=== PATIENT | male | born 1940 | race Caucasian/White ===

== ENCOUNTER → 2016-11-11 10:06 | Outpatient (CLI) | payer MEDICARE ==
[2016-06-03 13:41] VITALS: BMI 26.3
[~2016-11-11 10:06] MED LIST: BAYER CHEWABLE81 MG PO; BENADRYL25 MG PO; BUPRENORPHIN-N1 EACH SL; CORDARONE200 MG PO; CYMBALTA60 MG PO; HEMOCYTE PLUS C1 CAP PO; JANUMET 50-5001 TAB PO; LASIX40 MG PO; LIPITOR40 MG PO; METOPROLOL TART50 MG PO; MULTIPLE VITAMI1 TA1 PO; OMEPRAZOLE40 MG PO; PREDNISONE10 MG PO; PRINIVIL10 MG PO; SINEMET 25-1001 EACH PO; ZANAFLEX4 MG PO
== END | disposition home or self-care (01) ==
LOC: D.US 10:00
DX: I25.10 Atherosclerotic heart disease of native coronary artery without angina pectoris (principal); M79.605 Pain in left leg

== ENCOUNTER 2017-04-12 17:41 | Emergency (ER) | payer MEDICARE ==
[2016-06-03 13:41] VITALS: BMI 26.3
[2017-04-12 19:44] LABS: BASOPHILS 0.2 % (0-2); EOSINOPHILS 0.5 % (0-7); HEMATOCRIT 35.5 % (42.0-54.0); HEMOGLOBIN 11.9 g/dL (13.5-17.5); IMMATURE GRANULOCYTES 0.3 % (0-5); LYMPHOCYTES 4.9 % (15-50); MCH 29.9 pg (26.0-34.0); MCHC 33.5 g/dL (31.0-37.0); MCV 89.2 fL (80.0-100.0); MEAN PLATELET VOLUME 10.9 fL (7.4-10.4); NEUTROPHILS 80.1 % (40-80); RBC 3.98 10x6/uL (4.20-6.10); RDW 12.1 % (11.5-14.5); WBC 11.4 10x3/uL (4.8-10.8)
[2017-04-12 19:45] LABS: PLATELET COUNT 184 10x3/uL (130-400)
[2017-04-12 20:09] LABS: ALBUMIN 3.4 g/dL (3.4-5.0); ALKALINE PHOSPHATASE 78 U/L (46-116); ALT (SGPT) 20 U/L (10-68); CALC OSMOLALITY 255 mosm/kg (275-300); CALCIUM 8.7 mg/dL (8.5-10.1); CARBON DIOXIDE 29.1 mmol/L (21.0-32.0); CHLORIDE - SERUM 91 mmol/L (98-107); GLUCOSE 138 mg/dL (74-106); POTASSIUM - SERUM 4.7 mmol/L (3.5-5.1); PROTEIN - SERUM 6.5 g/dL (6.4-8.2); SODIUM 126 mmol/L (136-145); UREA NITROGEN 16 mg/dL (7-18); eGFR NON AFRICAN AMERICAN 76 mL/min (90-120)
[2017-04-12 20:17] LABS: PRO BNP 3528 pg/mL (0-450); TROPONIN-I < 0.017 ng/mL (0.000-0.060)
== END 2017-04-12 21:45 | disposition home or self-care (01) ==
LOC: D.ER 17:41
PROVIDERS: Family Medicine
DX: J18.9 Pneumonia, unspecified organism (principal)

== ENCOUNTER 2017-04-14 11:43 | Inpatient (IN) | payer MEDICARE ==
[2017-04-14 12:57] LABS: BASOPHILS 0.1 % (0-2); EOSINOPHILS 1.4 % (0-7); HEMATOCRIT 33.9 % (42.0-54.0); HEMOGLOBIN 11.6 g/dL (13.5-17.5); IMMATURE GRANULOCYTES 0.3 % (0-5); LYMPHOCYTES 7.9 % (15-50); MCH 29.9 pg (26.0-34.0); MCHC 34.2 g/dL (31.0-37.0); MCV 87.4 fL (80.0-100.0); MEAN PLATELET VOLUME 10.8 fL (7.4-10.4); MONOCYTES 21.8 % (2-11); NEUTROPHILS 68.5 % (40-80); RBC 3.88 10x6/uL (4.20-6.10); RDW 12.2 % (11.5-14.5)
[2017-04-14 13:00] LABS: PLATELET COUNT 238 10x3/uL (130-400)
[2017-04-14 13:21] LABS: ALBUMIN 2.8 g/dL (3.4-5.0); ALKALINE PHOSPHATASE 92 U/L (46-116); BILIRUBIN - TOTAL 0.44 mg/dL (0.2-1.3); CALC OSMOLALITY 254 mosm/kg (275-300); CALCIUM 8.3 mg/dL (8.5-10.1); CARBON DIOXIDE 29.6 mmol/L (21.0-32.0); CHLORIDE - SERUM 92 mmol/L (98-107); GLUCOSE 123 mg/dL (74-106); POTASSIUM - SERUM 4.6 mmol/L (3.5-5.1); PROTEIN - SERUM 6.2 g/dL (6.4-8.2); SODIUM 126 mmol/L (136-145); UREA NITROGEN 16 mg/dL (7-18); eGFR NON AFRICAN AMERICAN 76 mL/min (90-120)
[2017-04-14 13:23] LABS: ALT (SGPT) 36 U/L (10-68); TROPONIN-I < 0.017 ng/mL (0.000-0.060)
[2017-04-14] MEDS ORDERED: LOPRESSOR25 MG PO (13:40)
--- NOTE | 2017-04-14 14:31 | NUR ---
REPORT RECIEVED ASSUMED CARE. PATIENT IN BED WITH IV INTACT. NO COMPLAINTS. CALL LIGHT WITHIN REACH.
[2017-04-14 15:39] VITALS: BMI 23.8
--- NOTE | 2017-04-14 18:38 | NUR ---
METFORMIN NOT GIVEN FOR 1700 AT THIS TIME. PATIENT LAST BS 126 AND HAS NOT EATEN MUCH TODAY. PATIENT HAS NO COMPLAINTS AT THIS TIME. IV INTACT. CALL LIGHT WITHIN REACH.
--- NOTE | 2017-04-14 21:10 | NUR ---
PATIENT RESTING IN BED WITH GUEST AT BEDSIDE. ADMINISTERED MEDS PER ORDERS AND COMPLETED ASSESSMENT. COLLECTED URINE FOR LAB. PATIENT DENIES OTHER NEEDS AT THIS TIME. BED IN LOWEST POSITION AND CALL LIGHT WITHIN REACH. ENCOUARAGED THE PATIENT TO CALL IF HE HAS NEEDS.
[2017-04-15] VITALS: BP 132/58
[2017-04-15 04:00] VITALS: BP 121/58
[2017-04-15] MEDS ORDERED: FUROSEMIDE20 MG PO (04:29)
[2017-04-15] MEDS ORDERED: METOPROLOL TART50 MG PO (04:30)
--- NOTE | 2017-04-15 04:31 | NUR ---
PATIENT STATED HE MAY HAVE GIVEN INCORRECT DOSAGES ON HIS HOME MEDS AND BROUGHT A CURRENT LIST TO BE REVIEWED. I CORRECTED THE HOME DOSE OF FUROSEMIDE AND METOPROLOL. COPY OF THE PATIENT'S HOME MEDS IS IN THE CHART.
[2017-04-15 05:09] LABS: BASOPHILS 0.2 % (0-2); EOSINOPHILS 4.9 % (0-7); HEMATOCRIT 32.8 % (42.0-54.0); IMMATURE GRANULOCYTES 0.5 % (0-5); LYMPHOCYTES 21.4 % (15-50); MCH 29.4 pg (26.0-34.0); MCHC 33.5 g/dL (31.0-37.0); MCV 87.7 fL (80.0-100.0); MEAN PLATELET VOLUME 10.7 fL (7.4-10.4); MONOCYTES 20.2 % (2-11); NEUTROPHILS 52.8 % (40-80); PLATELET COUNT 243 10x3/uL (130-400); RBC 3.74 10x6/uL (4.20-6.10); RDW 12.3 % (11.5-14.5)
[2017-04-15 05:10] LABS: WBC 5.9 10x3/uL (4.8-10.8)
[2017-04-15 05:38] LABS: CALC OSMOLALITY 266 mosm/kg (275-300); CALCIUM 8.5 mg/dL (8.5-10.1); CARBON DIOXIDE 30.5 mmol/L (21.0-32.0); CHLORIDE - SERUM 98 mmol/L (98-107); GLUCOSE 124 mg/dL (74-106); MAGNESIUM - SERUM 2.1 mg/dL (1.8-2.4); PHOSPHOROUS 3.4 mg/dL (2.5-4.9); SODIUM 132 mmol/L (136-145); UREA NITROGEN 16 mg/dL (7-18); eGFR NON AFRICAN AMERICAN 76 mL/min (90-120)
[2017-04-15 07:55] VITALS: BP 134/53
--- NOTE | 2017-04-15 08:00 | NUR ---
PT RESTING IN BED, EASILY AROUSED. NO SIGNS OF ACUTE DISTRESS NOTED.
[2017-04-15 12:19] VITALS: BP 128/65
--- NOTE | 2017-04-15 13:21 | HP ---
PATIENT: LAVINIA LOWERY MEDICAL RECORD: [id number] ACCOUNT: [id number] LOCATION:[facility] : 38 ADMISSION DATE: 04/14/17 HISTORY AND PHYSICAL EXAMINATION DATE OF ADMISSION: 04/14/2017 CHIEF COMPLAINT: Pneumonia. HISTORY OF PRESENT ILLNESS: This 77-year-old white male presented to my office for followup from ED visit from [place] on April 12. He was diagnosed with right lower lobe pneumonia. He had the choice of going home or being admitted. In the end, he decided to try at home. He was placed on Levaquin p.o. He states he is not really feeling a whole lot better, still has lot of cough, has some shortness of breath. He was given a shot of Rocephin in the Emergency Department and started on Levaquin. He took the first Levaquin and threw it up. He kept yesterday's dose down, but with his not getting better and his age, it was decided to admit him for right lower lobe pneumonia, failed outpatient treatment. PAST MEDICAL AND SURGICAL HISTORY: He has high cholesterol, diabetes, coronary artery disease, hypertension; anemia, followed by Dr. Mckay; obstructive sleep apnea; chronic lumbago, on Suboxone, followed by Dr. Ernst. SURGICAL HISTORY: He has had cataracts done. 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 He had a pacemaker placed for third-degree heart block. ALLERGIES: PENICILLIN. HOME MEDICATIONS: Include metoprolol tartrate 25 mg b.i.d, atorvastatin 40 mg, lisinopril 10 mg, aspirin 81 mg a day, takes Suboxone 1 tablet daily, Cymbalta 60 mg daily, Lasix 40 mg daily, omeprazole 20 mg daily, Janumet 50/500 one pill twice a day as well as multivitamin. HABITS: Former smoker. Denies alcohol or drug use this time. REVIEW OF SYSTEMS: GENERAL: No major weight changes. HEENT: No particular sinus or allergy problems. RESPIRATORY: Pneumonia as noted. CARDIAC: He has history of coronary artery disease and he has had CABG with redo. GASTROINTESTINAL: No significant reflux or constipation. GENITOURINARY: No significant problems there. NEUROLOGIC: No migraines or seizure disorder. PSYCHIATRIC: Denies depression or melancholia. PHYSICAL EXAMINATION: VITAL SIGNS: He is awake and alert in my office, blood pressure 120/70, respirations 22. HEENT: Grossly within normal limits. NECK: Supple. HEART: Regular rate and rhythm without murmur. LUNGS: Diminished breath sounds in the right base. HISTORY AND PHYSICAL [id number] BEVERLEYLAVINIA OROZCO ABDOMEN: Soft, flat, nontender. EXTREMITIES: No edema. LABORATORY DATA: Lab work done here in the hospital. White count 8000, hemoglobin 11.6, hematocrit 33.9. Sodium 126, potassium 4.6, chloride 92, CO2 of 29.6, BUN 16, creatinine 1.0, glucose 123, calcium 8.3. Liver enzymes are all okay. Troponin less than 0.017. Blood cultures were done and are pending. Two-view chest was done showing persistent right lower lobe pneumonia without real significant change compared to the previous x-ray on 04/12/2017. There appears to be increased in airspace disease in the left lower lobe. ASSESSMENT: 1. Pneumonia, failed outpatient therapy. 2. Chronic anemia, followed by Dr. Mckay. 3. Former smoker. 4. History of heart disease. PLAN: We will admit, start antibiotics, respiratory care. We will ask Dr. Schaefer to see. Other tests and procedures as warranted. TRANSINT:[id number] Voice Confirmation ID: [id number] DOCUMENT ID: [id number] ENA SHEN MD at 1321 CC: [id number] DICTATION DATE: 04/14/172033 INFORMATICS PHARMACIST: 04/14/172107 ADM IN [place] [id number] [place] [address]
[2017-04-15 15:59] VITALS: BP 144/60
--- NOTE | 2017-04-15 19:48 | NUR ---
WATCHING TV QUIETLY. NO COMPLAINTS VOICED. IV INFUSING TO RIGHT ARM WITHOUT REDMESS OR EDEMA NOTED. CL IN REACH
[2017-04-15 20:00] VITALS: BP 150/69
[2017-04-16] VITALS: BP 164/72
--- NOTE | 2017-04-16 02:00 | NUR ---
PT IN BED WITH NO DISTRESS. RESPIRATIONS EVEN AND UNLABORED. SIDE RAILS X 2. BED IS LOW. CALL LIGHT IS IN REACH.
--- NOTE | 2017-04-16 02:00 | NUR ---
RESTING QUIETLY. NO DISTRESS NOTED.
[2017-04-16 04:00] VITALS: BP 143/61
[2017-04-16 05:43] LABS: CALCIUM 8.3 mg/dL (8.5-10.1); CARBON DIOXIDE 26.1 mmol/L (21.0-32.0); CHLORIDE - SERUM 95 mmol/L (98-107); CREATININE - SERUM 0.9 mg/dL (0.6-1.3); SODIUM 129 mmol/L (136-145); UREA NITROGEN 14 mg/dL (7-18); eGFR NON AFRICAN AMERICAN 86 mL/min (90-120)
[2017-04-16 05:50] LABS: CALC OSMOLALITY 264 mosm/kg (275-300); GLUCOSE 184 mg/dL (74-106); POTASSIUM - SERUM 5.4 mmol/L (3.5-5.1)
--- NOTE | 2017-04-16 05:59 | NUR ---
AWAKE WTIH NO COMPLAINTS VOICED. CL IN REACH
--- NOTE | 2017-04-16 07:00 | NUR ---
REPORT RECIEVED ASSUMED CARE. PATIENT IN BED WITH IV INTACT. NO COMPLAINTS. CALL LIGHT WITHIN REACH.
[2017-04-16 07:57] VITALS: BP 134/56
[2017-04-16 12:15] VITALS: BP 148/63
--- NOTE | 2017-04-16 14:17 | NUR ---
Patient Name: LAVINIA LOWERY Admission Status: Urgent Accout number: [id number] Admission Date: 04-14-2017 : 1940 Admission Diagnosis:CHRONIC OBSTRUCTIVE PULMON DISEASE W ACUTE LOWER RESP I Attending: ENA SHEN Current LOS: 2 Anticipated DC Date: Planned Disposition: Home Primary Insurance: MEDICARE A & B Discharge Planning Comments: CM met with patient's to assess discharge planning needs. Noemy () stated that the patient is independent with his daily care. He has a CPAP machine, but does not use it. Patient has a 3 story home, but does not have trouble with them. Noemy will be the flatbed company driver home at discharge. CM will continue to follow and assist with discharge planning needs. PCP: Ac Will Noemy Lowery () [phone] Senior Database Engineer: Vanessa Mcmahan * Is the patient Alert and Oriented? Yes 0 * How many steps to enter\exit or inside your home? 3 story 0 * PCP AC 0 * Pharmacy [facility] 0 * Preadmission Environment Home with Family 0 * ADLs Independent 0 * Equipment CPAP 0 * List name and contact numbers for known caregivers / representatives who currently or will assist patient after discharge: NOEMY LOWERY () [phone] * Community resources currently utilized None 0 * Additional services required to return to the preadmission environment? No 0 * Can the patient safely return to the preadmission environment? Yes 0 * Has this patient been hospitalized within the prior 30 days at any hospital? No 0 Grand Total: 0
[2017-04-16 16:02] VITALS: BP 154/64
--- NOTE | 2017-04-16 18:45 | NUR ---
PATIENT IN BED WITH NO COMPLAINTS. FAMILY AT BEDSIDE. CALL LIGHT WITHIN REACH.
[2017-04-16 20:00] VITALS: BP 144/65
[2017-04-17] VITALS: BP 141/62
[2017-04-17 04:00] VITALS: BP 145/62
[2017-04-17 06:46] LABS: CALC OSMOLALITY 255 mosm/kg (275-300); CALCIUM 8.5 mg/dL (8.5-10.1); CHLORIDE - SERUM 92 mmol/L (98-107); CREATININE - SERUM 0.8 mg/dL (0.6-1.3); GLUCOSE 202 mg/dL (74-106); POTASSIUM - SERUM 4.7 mmol/L (3.5-5.1); SODIUM 124 mmol/L (136-145); UREA NITROGEN 13 mg/dL (7-18); eGFR NON AFRICAN AMERICAN > 90 mL/min (90-120)
[2017-04-17 07:39] VITALS: BP 141/61
[2017-04-17] MEDS ORDERED: ZITHROMAX250 MG PO (08:34)
[2017-04-17] MEDS ORDERED: OMNICEF300 MG PO (08:34)
[2017-04-17] MEDS ORDERED: PREDNISONE10 MG PO (08:36)
== END 2017-04-17 14:07 | disposition home or self-care (01) | DRG 190 ==
LOC: D.MS 11:43
PROVIDERS: Internal Medicine Pulmonary Disease; ADMIT Family Medicine
DX: J44.0 Chronic obstructive pulmonary disease with (acute) lower respiratory infection (principal); J18.9 Pneumonia, unspecified organism; E87.1 Hypo-osmolality and hyponatremia; J44.1 Chronic obstructive pulmonary disease with (acute) exacerbation; G47.33 Obstructive sleep apnea (adult) (pediatric); E11.9 Type 2 diabetes mellitus without complications; I10 Essential (primary) hypertension; E78.5 Hyperlipidemia, unspecified; D64.9 Anemia, unspecified; E87.5 Hyperkalemia; R51 Headache

== ENCOUNTER → 2017-05-13 13:16 | Outpatient (CLI) | payer MEDICARE ==
[2017-04-14 15:39] VITALS: BMI 23.8
[~2017-05-13 13:16] MED LIST changes: +FUROSEMIDE20 MG PO; +LOPRESSOR25 MG PO; +OMNICEF300 MG PO; +ZITHROMAX250 MG PO
== END | disposition home or self-care (01) ==
LOC: D.RT 13:16
DX: J32.9 Chronic sinusitis, unspecified (principal)

== ENCOUNTER → 2018-03-09 09:39 | Outpatient (CLI) | payer MEDICARE | END | disposition home or self-care (01) | LOC: D.RAD 09:39 | DX: Z87.01 Personal history of pneumonia (recurrent) (principal) ==

== ENCOUNTER → 2018-05-31 14:16 | Outpatient (CLI) | payer MEDICARE | END | disposition home or self-care (01) | LOC: D.CT 14:16 | DX: R51 Headache (principal) ==

== ENCOUNTER → 2018-06-09 13:13 | Outpatient (CLI) | payer MEDICARE | END | disposition home or self-care (01) | LOC: D.CT 13:13 | DX: R51 Headache (principal) ==

== ENCOUNTER → 2018-09-03 10:49 | Outpatient (CLI) | payer MEDICARE | END | disposition home or self-care (01) | LOC: D.RT 10:49 | DX: J45.909 Unspecified asthma, uncomplicated (principal) ==

== ENCOUNTER → 2019-03-08 10:03 | Outpatient (CLI) | payer MEDICARE ==
--- NOTE | 2019-03-15 11:09 | EC ---
PATIENT:LAVINIA LOWERY DATE OF SERVICE: 03/08/19 SEX: M MEDICAL RECORD: [id number] DATE OF : 36 [facility] AGE OF PATIENT: 79 ADMISSION DATE: 03/08/19 REFERRING PHYSICIAN: INTERPRETING PHYSICIAN: BRIT BRISENO MD ECHOCARDIOGRAM REPORT ECHO CHARGES 4 ECHO COMPLETE Date: 03/08/19 CLINICAL DIAGNOSIS: PULMONARY HTN, ASTHMA, SOB ECHOCARDIOGRAPHIC MEASUREMENTS (adult normal given) AC root (d.<3.7cm) 2.8 cm LV Septum d (<1.2 cm> 0.6 cm Valve Excursion 1.5 cm LV Septum (systole) 0.7 cm Left Atria (s.<4.0cm> 2.6 cm LVPW d(<1.2cm) 1.4 cm RV (d.<2.3cm) 3.9 cm LVPW (sytole) 1.6 cm LV diastole(<5.6CM) 5.7 cm MV E-F(>70mm/sec) cm LV systole 4.8 cm LVOT Diameter 1.8 cm MV exc.(>10mm) cm Est.ejection fraction (50-75%) % DOPPLER: LVIT cm/sec A 84 cm/sec E 64 cm/sec LA cm/sec RVSP 27.8 mmHg LVOT 89 cm/sec AOP1/2T m/s Asc. Ao 109 cm/sec RVOT 53 cm/sec RA cm/sec PA 85 cm/sec AV Gradient Peak 4.7 mmHg AV Mean 2.6 mmHg AV Area 1.9 cm MV Gradient Peak 4.0 mmHg MV Mean 1.3 mmHg MV Area cm COMMENTS: Electronic Page Makeup System Operator: Bella FENG Fractionating Still Operator: 1 Dr. Briseno TAPE# PACS Pericardial Effusion N DATE OF SERVICE: 03/08/2019 ECHOCARDIOGRAM DATE OF SERVICE: 03/08/2019 FINDINGS: 1. Left ventricular chamber size is within normal limits. Left ventricular systolic function is normal. Overall ejection fraction estimated at 60%. 2. Left atrium, right atrium, and right ventricular chamber sizes are within ECHOCARDIOGRAM REPORT [id number] LAVINIA LOWERY normal limits. 3. Valvular structures have normal structure and motion. 4. Doppler interrogation reveals mild mitral regurgitation, mild tricuspid regurgitation, no other valvular insufficiency or stenosis. Pulmonary systolic pressure is normal estimated 28 mmHg. 5. No evidence of pericardial effusion or left ventricular thrombus. TRANSINT:[id number] Voice Confirmation ID: [id number] DOCUMENT ID: [id number] BRIT BRISENO MD at 1109 CC: [id number] DICTATION DATE: 03/08/19 1557 LEARNING TECHNOLOGIES SPECIALIST: 03/08/19 1627 DEP CLI 03/08/19 [place] [id number]
== END | disposition home or self-care (01) ==
LOC: D.ECHO 03-02 09:00
PROVIDERS: ATTEND Internal Medicine Pulmonary Disease
DX: J45.909 Unspecified asthma, uncomplicated (principal); I27.20 Pulmonary hypertension, unspecified

== ENCOUNTER 2019-06-24 21:52 | Emergency (ER) | payer MEDICARE ==
[~2019-06-24] VITALS: Ht 182.9 cm; Wt 79.5 kg
[2019-06-24 21:57] VITALS: Ht 182.9 cm; Wt 79.5 kg
[2019-06-24 22:21] LABS: BASOPHILS 0.1 % (0-2); EOSINOPHILS 0.4 % (0-7); HEMATOCRIT 41.4 % (42.0-54.0); HEMOGLOBIN 13.8 g/dL (13.5-17.5); IMMATURE GRANULOCYTES 0.4 % (0-5); LYMPHOCYTES 16.1 % (15-50); MCH 29.6 pg (26.0-34.0); MCHC 33.3 g/dL (31.0-37.0); MCV 88.7 fL (80.0-100.0); MONOCYTES 8.5 % (2-11); NEUTROPHILS 74.5 % (40-80); PLATELET COUNT 198 10x3/uL (130-400); RBC 4.67 10x6/uL (4.20-6.10); RDW 12.5 % (11.5-14.5); WBC 7.9 10x3/uL (4.8-10.8)
[2019-06-24 22:30] LABS: CALC OSMOLALITY 282 mosm/kg (275-300); CALCIUM 9.4 mg/dL (8.5-10.1); CARBON DIOXIDE 28.2 mmol/L (21.0-32.0); CHLORIDE - SERUM 100 mmol/L (98-107); CREATININE - SERUM 0.9 mg/dL (0.6-1.3); GLUCOSE 190 mg/dL (74-106); POTASSIUM - SERUM 4.1 mmol/L (3.5-5.1); SODIUM 140 mmol/L (136-145); UREA NITROGEN 11 mg/dL (7-18); eGFR NON AFRICAN AMERICAN 86 mL/min (90-120)
[2019-06-24 22:38] LABS: APTT 24.6 SECONDS (22.8-39.4); INR 1.01 (0.85-1.17); PROTIME 12.8 SECONDS (11.6-15.0)
[2019-06-24 22:43] LABS: ALKALINE PHOSPHATASE 83 U/L (46-116); ALT (SGPT) 26 U/L (10-68); BILIRUBIN - TOTAL 0.45 mg/dL (0.2-1.3); CREATINE KINASE 181 UL (21-232); LIPASE 72 U/L (73-393); PRO BNP 138 pg/mL (0-450); PROTEIN - SERUM 7.3 g/dL (6.4-8.2)
[2019-06-24 22:44] LABS: TROPONIN-I < 0.017 ng/mL (0.000-0.060)
[2019-06-25 00:10] LABS: APPEARANCE CLEAR (CLEAR); BILIRUBIN NEGATIVE (NEGATIVE); COLOR YELLOW (YELLOW); GLUCOSE NEGATIVE (NEGATIVE); KETONE MODERATE mg/dL (NEGATIVE); NITRITE NEGATIVE (NEGATIVE); PROTEIN NEGATIVE (NEGATIVE); SPECIFIC GRAVITY 1.015 (1.005-1.020); UROBILINOGEN NORMAL (NORMAL)
[2019-06-25] MEDS ORDERED: PHENERGAN25 MG RC (00:26)
[2019-06-25 00:50] VITALS: BP 152/61
== END 2019-06-25 00:52 | disposition home or self-care (01) ==
LOC: D.ER 21:52
PROVIDERS: Family Medicine
DX: R11.10 Vomiting, unspecified (principal); E11.9 Type 2 diabetes mellitus without complications; I25.2 Old myocardial infarction; Z95.1 Presence of aortocoronary bypass graft; I25.10 Atherosclerotic heart disease of native coronary artery without angina pectoris